=== PATIENT | female | born 2005 | race Caucasian/White ===

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

== ENCOUNTER → 2023-04-23 | Outpatient (CLI) | payer BC ==
[2023-04-23 09:15] LABS: MEAN CELL VOLUME 93.8 fl (81.0-99.0); MEAN CORPUSCULAR HGB 29.6 pg (27.0-31.0); MEAN CORPUSCULAR HGB CONC 31.6 g/dl (33.0-37.0); MEAN PLATELET VOLUME 10.7 fl (9.6-12.3); RED BLOOD COUNT 4.05 10*6/uL (4.10-5.10); RED CELL DISTRI WIDTH 13.9 % (0-14.5); WHITE BLOOD COUNT 7.4 10*3/uL (4.8-10.8)
[2023-04-23 09:46] LABS: ALKALINE PHOSPHATASE 87 U/L (46-116); BUN 14 mg/dl (9-23); CHLORIDE 105 mmol/L (98-107); CHOLESTEROL 135 mg/dL (<200); LDL CHOLESTEROL 83 mg/dL (9-159); POTASSIUM 3.9 mmol/L (3.4-5.1); SGPT/ALT 7 U/L (5-49); TOTAL PROTEIN 8.1 gm/dL (6.0-8.0); TRIGLYCERIDES 61 mg/dl (<150)
== END | disposition home or self-care (01) ==
LOC: LAB 08:46
PROVIDERS: ATTEND Family Medicine
DX: Z13.220 Encounter for screening for lipoid disorders (principal); E55.9 Vitamin D deficiency, unspecified; F41.1 Generalized anxiety disorder; E74.00 Glycogen storage disease, unspecified; R53.83 Other fatigue

== ENCOUNTER → 2023-05-31 | Outpatient (CLI) | payer BC ==
[2023-06-01 13:06] LABS: CCP ANTIBODIES IGG/IGA 6 units (0-19)
== END | disposition home or self-care (01) ==
LOC: LAB 15:38
PROVIDERS: ATTEND Family Medicine
DX: F41.1 Generalized anxiety disorder (principal); E74.00 Glycogen storage disease, unspecified; M79.10 Myalgia, unspecified site; M25.50 Pain in unspecified joint; R63.5 Abnormal weight gain

== ENCOUNTER → 2024-05-19 | Outpatient (CLI) | payer BC ==
[2024-05-19 09:46] LABS: HEMATOCRIT 38.2 % (37.0-47.0); MEAN CELL VOLUME 93.2 fl (81.0-99.0); MEAN CORPUSCULAR HGB 29.8 pg (27.0-31.0); MEAN CORPUSCULAR HGB CONC 31.9 g/dl (33.0-37.0); MEAN PLATELET VOLUME 10.7 fl (9.6-12.3); RED BLOOD COUNT 4.1 10*6/uL (4.10-5.10); RED CELL DISTRI WIDTH 12.7 % (0-14.5)
[2024-05-19 10:11] LABS: ALKALINE PHOSPHATASE 79 U/L (46-116); BUN 12 mg/dl (9-23); CHLORIDE 104 mmol/L (98-107); CHOLESTEROL 129 mg/dL (<200); FREE T4 1.11 ng/dl (0.89-1.76); LDL CHOLESTEROL 74 mg/dL (9-159); POTASSIUM 4.3 mmol/L (3.4-5.1); SGPT/ALT 8 U/L (5-49); TOTAL PROTEIN 7.8 gm/dL (6.0-8.0); TRIGLYCERIDES 48 mg/dl (<150)
== END | disposition home or self-care (01) ==
LOC: LAB 09:22
PROVIDERS: ATTEND Family Medicine
DX: E55.9 Vitamin D deficiency, unspecified (principal); E78.00 Pure hypercholesterolemia, unspecified; R53.83 Other fatigue; R42 Dizziness and giddiness; I10 Essential (primary) hypertension; R53.1 Weakness

== ENCOUNTER 2024-06-20 13:52 | Emergency (ER) | payer BC ==
[~2024-06-20] VITALS: Ht 172.7 cm; Wt 54.4 kg
[2024-06-20] MEDS ORDERED: diphenhydrAMINE hydrochloride 50 MG/ML VIAL IV ONE (15:40)
[2024-06-20] MEDS ORDERED: Metoclopramide Hydrochloride 10 MG/2 ML VIAL IV ONE (15:40)
[2024-06-20] MEDS ORDERED: SODIUM CHLORIDE 0.9% 1,000 ML IV ONE (15:40)
[2024-06-20 16:00] LABS: MEAN CELL VOLUME 92.4 fl (81.0-99.0); MEAN CORPUSCULAR HGB 29.8 pg (27.0-31.0); MEAN CORPUSCULAR HGB CONC 32.3 g/dl (33.0-37.0); MEAN PLATELET VOLUME 10.9 fl (9.6-12.3); PLATELET COUNT AUTOMATED 217 10*3/uL (130-400); RED BLOOD COUNT 4.33 10*6/uL (4.10-5.10); RED CELL DISTRI WIDTH 12.4 % (0-14.5); WHITE BLOOD COUNT 12.2 10*3/uL (4.8-10.8)
[2024-06-20 16:11] LABS: MANUAL DIFF REFLEX YES
[2024-06-20 16:27] LABS: ALKALINE PHOSPHATASE 77 U/L (46-116); BUN 16 mg/dl (9-23); CHLORIDE 103 mmol/L (98-107); LIPASE 26 U/L (12-53); SGPT/ALT 12 U/L (5-49); TOTAL PROTEIN 7.9 gm/dL (6.0-8.0)
[2024-06-20 16:29] LABS: PLATELET SUFFICIENCY NORMAL (NORMAL); TOTAL CELLS COUNTED 100 #CELLS
[2024-06-20 16:30] LABS: BURR CELLS FEW; OVALOCYTES FEW
[2024-06-20 19:18] LABS: BILIRUBIN Negative (Negative); BLOOD Negative (Negative); CLARITY Clear (Clear); COLOR Yellow (Yellow); GLUCOSE Negative (Negative); KETONE 4+ (Negative); LEUKO ESTERASE Negative (Negative); NITRITE Negative (Negative); PH 5.5 (4.5-8.0); SPECIFIC GRAVITY >= 1.030 (1.001-1.030); UROBILINOGEN 0.2 E.U./dl (0.0-1.0)
[2024-06-20 19:22] LABS: BACTERIA 1+; MUCOUS 1+; WBC 0-2 wbc/hpf (0-5)
[2024-06-20] MEDS ORDERED: Phenergan25 MG PO (19:26)
[2024-06-20] MEDS ORDERED: Ondansetron Hydrochloride 4 MG/2 ML VIAL IV ONE (19:30)
[2024-06-20] MEDS ORDERED: Promethazine Hydrochloride 25 MG/ML VIAL IM ONE (19:35)
== END 2024-06-20 19:40 | disposition home or self-care (01) ==
LOC: ED 13:52
PROVIDERS: Nurse Practitioner Family
DX: A08.4 Viral intestinal infection, unspecified (principal); Z20.822 Contact with and (suspected) exposure to COVID-19; R11.2 Nausea with vomiting, unspecified; F41.9 Anxiety disorder, unspecified; G43.909 Migraine, unspecified, not intractable, without status migrainosus; Z98.890 Other specified postprocedural states

== ENCOUNTER 2025-03-28 15:25 | Emergency (ER) | payer BC ==
[~2025-03-28] VITALS: Wt 54.9 kg
[~2025-03-28 15:25] MED LIST changes: +Phenergan25 MG PO
[2025-03-28] MEDS ORDERED: SODIUM CHLORIDE 0.9% 1,000 ML IV ONE (15:45)
[2025-03-28] MEDS ORDERED: Ondansetron Hydrochloride 4 MG/2 ML VIAL IV ONE (15:45)
[2025-03-28 16:14] LABS: BASO # 0.0 10*3/uL (0.0-0.1); BASO % 0.5 % (0.0-1.0); EOS # 0.1 10*3/uL (0.0-0.4); EOS % 1.9 % (1.0-4.0); MEAN CELL VOLUME 92.6 fl (81.0-99.0); MEAN CORPUSCULAR HGB 30.2 pg (27.0-31.0); MEAN PLATELET VOLUME 10.9 fl (9.6-12.3); MONO # 0.4 10*3/uL (0.1-1.0); MONO % 6.7 % (3.0-9.0); NEUT # 3.7 10*3/uL (2.3-7.9); NEUT % 62.2 % (47.0-73.0); NUCLEATED RED BLOOD CELL 0.0 % (0.0-0.0); NUCLEATED RED BLOOD CELL 0.0 10*3/uL (0.0-0.0); PLATELET COUNT AUTOMATED 222 10*3/uL (130-400); RED CELL DISTRI WIDTH 12.4 % (0-14.5)
[2025-03-28] MEDS ORDERED: HYDROmorphONE Hydrochloride 0.5 MG/0.5 ML SYRINGE IV ONE (16:25)
[2025-03-28 16:46] LABS: BUN 10 mg/dl (9-23)
[2025-03-28 16:48] LABS: BILIRUBIN Negative (Negative); BLOOD Negative (Negative); CLARITY Clear (Clear); COLOR Yellow (Yellow); KETONE 2+ (Negative); LEUKO ESTERASE Negative (Negative); NITRITE Negative (Negative); PH 7.5 (4.5-8.0); SPECIFIC GRAVITY 1.015 (1.001-1.030); UROBILINOGEN 0.2 E.U./dl (0.0-1.0)
[2025-03-28] MEDS ORDERED: POTASSIUM CHLORIDE 20 MEQ TAB PO ONE (16:55)
[2025-03-28 17:00] LABS: BACTERIA 1+; MUCOUS TRACE
[2025-03-28] MEDS ORDERED: Metoclopramide Hydrochloride 10 MG/2 ML VIAL IV ONE (17:05)
[2025-03-28] MEDS ORDERED: diphenhydrAMINE hydrochloride 50 MG/ML VIAL IV ONE (17:05)
[2025-03-28] MEDS ORDERED: COLACE100 MG PO (18:43)
[2025-03-28] MEDS ORDERED: MIRALAX POWDER17 G1 PO (18:43)
[2025-03-28] MEDS ORDERED: Ondansetron4 MG PO (18:44)
== END 2025-03-28 18:50 | disposition home or self-care (01) ==
LOC: ED 15:25
PROVIDERS: Nurse Practitioner Family
DX: K59.00 Constipation, unspecified (principal); G43.909 Migraine, unspecified, not intractable, without status migrainosus; F41.9 Anxiety disorder, unspecified